=== PATIENT | male | born 2000 | race Caucasian/White ===

== ENCOUNTER 2019-01-24 19:44 | Emergency (ER) | payer OTHER ==
--- OUTSIDE RECORDS SUMMARY | 2019-01-24 20:02 | XMS REPORT | Continuity of Care Document ---
:2000 External Reference #:[id number] Author Name Susan Navarro O.D. Address [address] [place] [address] Care Team Providers Name Role Phone Nikko Baires D.O. 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 Active Problems Social History Type Date Description Comments Sex Unknown ETOH Use Denies alcohol use Tobacco Use Start: Unknown Heavy tobacco smoker (more than 10 cigarettes/day) Recreational Drug Use Denies Drug Use Smoking Status Reviewed: 12/20/18 Heavy tobacco smoker (more than 10 cigarettes/day) Allergies, Adverse Reactions, Alerts Description No Known Drug Allergies Medications Description No Active Medications Immunizations Description No Information Available Vital Signs Description No Information Available Results Description No Information Available Procedures Description No Information Available Medical Devices Description No Information Available Encounters Description No Information Available Assessments Date Code Description Provider 12/20/2018 H52.13 Myopia, bilateral Susan Navarro O.D. Plan of Treatment 12/20/2018 - Susan Navarro O.D.H52.13 Myopia, bilateralComments:You have Myopia, or near sightedness. I have given you a prescription for glasses.Follow up:1-2 WEEK CL'S CHECK Functional Status Description No Information Available Mental Status Description No Information Available Referrals Description No Information Available
[2019-01-24 20:18] VITALS: BP 126/55
[2019-01-24] MEDS ORDERED: Naproxen TAB* 250 MG PO ONE (21:38)
--- NOTE | 2019-01-24 21:56 | UC ---
Lower Extremity/Ankle HPI - HPI Summary HPI Summary: -year-old white male presents with left ankle swelling and pain after inversion injury, patient states he has difficulty bearing weight on it due to pain and swelling and has difficulty with ambulation. - History of Current Complaint Chief Complaint: UCLowerExtremity Stated Complaint: LEFT ANKLE INJURY Time Seen by Provider: 01/24/19 20:34 Hx Obtained From: Patient - wall fell Onset/Duration: Sudden Onset Severity Initially: Moderate Severity Currently: Severe - Is as( Pain Intensity: 8 Aggravating Factor(s): Standing, Ambulation Alleviating Factor(s): Rest, Elevation Able to Bear Weight: No - Allergies/Home Medications Allergies/Adverse Reactions: Allergies Allergy/AdvReac Type Severity Reaction Status Date / Time No Known Allergies Allergy Verified 01/24/19 20:14 PMH/Surg Hx/FS Hx/Imm Hx Previously Healthy: Yes - Surgical History Surgical History: None - Family History Known Family History: Positive: Non-Contributory - Social History Alcohol Use: None Substance Use Type: None Smoking Status (MU): Never Smoked Tobacco Amount Used/How Often: occassionally Review of Systems All Other Systems Reviewed And Are Negative: Yes Constitutional: Positive: Negative Skin: Positive: Negative Eyes: Positive: Negative ENT: Positive: Negative Respiratory: Positive: Negative Cardiovascular: Positive: Negative Gastrointestinal: Positive: Negative Musculoskeletal: Positive: Decreased ROM, Other: - see HPI Neurological: Positive: Negative Psychological: Positive: Negative Physical Exam - Summary Physical Exam Summary: Appearance: Positive: No Pain Distress Skin: Positive: Warm Head/Face: Positive: Normal Head/Face Inspection Eyes: :Normal ENT: Normal ENT inspection Neck: Positive: Supple Respiratory/Lung Sounds: Positive: Clear to Auscultation. Negative: Rales, Rhonchi, Wheezes Cardiovascular: Positive: Normal, RRR, S1, S2 Abdomen : soft, NT/ND Musculoskeletal: Positive: moderate bimalleolar left ankle swelling without bony tenderness, ROM restricted due to pain, NVI Neurological: Positive: CN 2-12 grossly intact. Triage Information Reviewed: Yes Vital Signs: Initial Vital Signs Temp 37.1 C 01/24/19 20:15 Pulse 72 01/24/19 20:15 Resp 16 01/24/19 20:15 BP 126/55 01/24/19 20:15 Pulse Ox 99 01/24/19 20:15 Lower Extremity Course/Dx - Course Course Of Treatment: X-ray of left ankle negative for fracture or dislocationRICE, NSAIDs, CAM boot , follow up with orthopedic in 2 weeks if pain persists. - Differential Dx/Diagnosis Provider Diagnosis: Moderate left ankle sprain Discharge ED - Sign-Out/Discharge Documenting (check all that apply): Patient Departure All imaging exams completed and their final reports reviewed: Yes - Discharge Plan Condition: Stable Disposition: HOME Prescriptions: Naproxen Sodium [Naproxen Sodium 500 MG TAB] 500 mg PO BID 10 Days #20 tab Additional Instructions: Follow-up with orthopedics if pain persists for more than 2 weeks. - Billing Disposition and Condition Condition: STABLE Disposition: Home
== END 2019-01-24 22:08 | disposition home or self-care (01) ==
LOC: UCCORT 19:44
DX: S93.402A Sprain of unspecified ligament of left ankle, initial encounter (principal); X50.9XXA Other and unspecified overexertion or strenuous movements or postures, initial encounter; Y92.9 Unspecified place or not applicable
CPT/HCPCS: 99213; A9270-GY; G0463